=== PATIENT | male | born 2000 | race Hispanic/Latino ===

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

== ENCOUNTER 2023-08-06 14:10 | Emergency (ER) | payer BC ==
[2023-08-06] MEDS ORDERED: Acetaminophen 500 MG TAB ONE (15:38)
== END 2023-08-06 15:47 | disposition home or self-care (01) ==
LOC: ERS 14:10
DX: M53.3 Sacrococcygeal disorders, not elsewhere classified (principal)
CPT/HCPCS: 72170; 72220